=== PATIENT | female | born 1945 | race Caucasian/White ===

== ENCOUNTER 2023-08-03 10:34 | Inpatient (IN) | payer MEDICARE, BC ==
[~2023-08-03] VITALS: Ht 154.9 cm; Wt 50.9 kg
[~2023-08-03 10:34] MED LIST: CHOL4PW PO; NICO2GUM PO; PROP50TAB PO; PROP60TA14 PO; SELF1KIT MC
[2023-08-03] MEDS: METOPROLOL 5 MG/5 ML VIAL IV SCH (11:56)
[2023-08-03] MEDS ORDERED: METOPROLOL 5 MG/5 ML VIAL IV STA (12:26)
[2023-08-03 12:27] LABS: HEMATOCRIT 46.9 % (36.0-47.0); HEMOGLOBIN 15.2 g/dl (12.0-15.5); MEAN CORPUSCULAR HEMOGLOBIN 28.1 pg (27.0-33.0); MEAN CORPUSCULAR HGB CONC 32.4 g/dl (32.0-36.5); MEAN CORPUSCULAR VOLUME 86.7 fl (80.0-96.0); PLATELET COUNT, AUTOMATED 288 10^3/uL (150-450); RED BLOOD COUNT 5.41 10^6/uL (4.00-5.40); WHITE BLOOD COUNT 13.6 10^3/uL (4.0-10.0)
[2023-08-03 12:52] LABS: INR 1.04; PROTHROMBIN TIME 13.3 SECONDS (12.5-14.5)
[2023-08-03] MEDS: METOPROLOL TART 25 MG TABLET PO ONE (13:50)
[2023-08-03] MEDS: ASPIRIN 325 MG TAB PO ONE (17:29)
[2023-08-03] MEDS ORDERED: ISOVUE-370 76% 100ML VIAL As Ordered ONE (20:38)
[2023-08-03] MEDS ORDERED: MED REC CURRENTLY UNOBTAINABLE XX SCH (22:10)
[2023-08-03] MEDS ORDERED: ACETAMINOPHEN TAB 650MG DOSE (2X325MG) PO PRN (23:10)
[2023-08-03] MEDS ORDERED: MOM 30ML SUSPENSION UDC PO PRN (23:10)
[2023-08-04 01:01] VITALS: BP 137/88; TEMP 98.6; O2SAT 94
[2023-08-04] MEDS: APIXABAN 5 MG TAB (ELIQUIS) PO SCH (01:21)
[2023-08-04] MEDS: METOPROLOL TART 25 MG TABLET PO SCH (01:22)
[2023-08-04 04:44] VITALS: BP 143/88; TEMP 97.5; O2SAT 95
[2023-08-04 05:59] LABS: HEMATOCRIT 42.8 % (36.0-47.0); HEMOGLOBIN 14.1 g/dl (12.0-15.5); MEAN CORPUSCULAR HEMOGLOBIN 28.2 pg (27.0-33.0); MEAN CORPUSCULAR HGB CONC 32.9 g/dl (32.0-36.5); MEAN CORPUSCULAR VOLUME 85.6 fl (80.0-96.0); PLATELET COUNT, AUTOMATED 272 10^3/uL (150-450); WHITE BLOOD COUNT 10.8 10^3/uL (4.0-10.0)
[2023-08-04 08:00] VITALS: BP 143/72; TEMP 97.7; O2SAT 97
[2023-08-04] MEDS ORDERED: ATEN50TA2 PO (08:06)
[2023-08-04] MEDS ORDERED: ELIQ5TAB PO (08:06)
[2023-08-04] MEDS ORDERED: SELF1KIT MC (08:07)
[2023-08-04 08:09] LABS: BLOOD UREA NITROGEN 26 MG/DL (7-21); GLUCOSE, FASTING 150 MG/DL
[2023-08-04 08:10] LABS: CALCIUM LEVEL 9.4 MG/DL (8.8-10.2); CARBON DIOXIDE LEVEL 23 MEQ/L (22-30); CHLORIDE LEVEL 102 MEQ/L (98-107); CREATININE FOR GFR 0.4 MG/DL (0.7-1.5); GLOMERULAR FILTRATION RATE > 60.0 (>39); POTASSIUM SERUM 4.2 MEQ/L (3.6-5.0); SODIUM LEVEL 138 MEQ/L (134-153)
[2023-08-04 08:11] LABS: ALBUMIN 4.2 G/DL (3.9-5.0); ALKALINE PHOSPHATASE 142 U/L (35-104); ALT/SGPT 34 U/L (1-33); AST/SGOT 27 U/L (5-40); BILIRUBIN,DIRECT < 0.2 MG/DL (0.1-0.4); BILIRUBIN,TOTAL < 0.7 MG/DL (0.2-1.3); TOTAL PROTEIN 6.9 G/DL (6.3-8.2)
[2023-08-04 08:13] LABS: CPK CREATINE PHOSPHOKINASE 54 U/L (30-170)
[2023-08-04 08:15] LABS: ETHYL ALCOHOL (ETHANOL) < 0.00 % (0.00-0.01)
[2023-08-04] MEDS: atenoloL 50 MG TAB PO ONE (08:34)
[2023-08-04] MEDS: DIGOXIN INJ 0.5 MG/2 ML AMP IV STA (08:35)
[2023-08-04 09:46] LABS: AMPHETAMINES LEVEL URINE NEGATIVE (NEGATIVE); BARBITURATES URINE NEGATIVE (NEGATIVE); BENZODIAZEPINES URINE NEGATIVE (NEGATIVE); CANNABINOIDS URINE NEGATIVE (NEGATIVE); COCAINE METABOLITE URINE NEGATIVE (NEGATIVE); OPIATES URINE NEGATIVE (NEGATIVE); PHENCYCLIDINE URINE NEGATIVE (NEGATIVE)
[2023-08-04 10:11] LABS: CPK CREATINE PHOSPHOKINASE 50 U/L (30-170)
[2023-08-04] MEDS ORDERED: METOPROLOL TART 12.5 MG PER 1/2 TAB PO PRN (11:25)
[2023-08-04 20:51] VITALS: BP 130/65; TEMP 97.9; O2SAT 94
[2023-08-05 05:40] VITALS: BP 128/64; TEMP 97.7; O2SAT 96
[2023-08-05 05:47] VITALS: BP 177/84; TEMP 98.2; O2SAT 97
[2023-08-05] MEDS: atenoloL 50 MG TAB PO SCH (08:19)
[2023-08-06 04:46] VITALS: BP 142/70; TEMP 97.7; O2SAT 96
[2023-08-07 05:20] VITALS: BP 146/82; TEMP 98.1; O2SAT 95
[2023-08-07 14:58] LABS: T UPTAKE 33 % (24-39)
[2023-08-07 14:59] LABS: THYROID STIMULATING HORMONE < 0.005 uIU/ML (0.450-4.500); THYROXINE (T4) 11.7 MCG/DL (4.5-12.0)
[2023-08-07] MEDS ORDERED: atenoloL 50 MG TAB PO SCH (21:00)
[2023-08-07] MEDS: PROPRANOLOL 20 MG TAB PO SCH (21:01)
[2023-08-08 06:00] VITALS: BP 138/84; TEMP 98.1; O2SAT 97
[2023-08-08 06:12] LABS: THYROID PEROXIDASE ANTIBODY < 28.0 U/ML (<60.0); THYROID STIMULATING HORMONE 0.014 uIU/ML (0.55-4.78); TOTAL T3 196.1 NG/DL (60.0-181.0)
[2023-08-08 06:13] LABS: FREE T4 1.63 NG/DL (0.89-1.76)
[2023-08-08 08:13] LABS: BLOOD UREA NITROGEN 18 MG/DL (7-21); GLUCOSE, FASTING 116 MG/DL
[2023-08-08 08:15] LABS: CALCIUM LEVEL 9.1 MG/DL (8.8-10.2); CARBON DIOXIDE LEVEL 24 MEQ/L (22-30); CHLORIDE LEVEL 107 MEQ/L (98-107); CREATININE FOR GFR 0.4 MG/DL (0.7-1.5); GLOMERULAR FILTRATION RATE > 60.0 (>39); MAGNESIUM LEVEL 1.7 MG/DL (1.7-2.2); POTASSIUM SERUM 3.9 MEQ/L (3.6-5.0); SODIUM LEVEL 142 MEQ/L (134-153)
[2023-08-08 14:00] VITALS: BP 132/86; TEMP 98.2; O2SAT 97
[2023-08-08 20:00] VITALS: BP 133/75; TEMP 98.1; O2SAT 97
[2023-08-09 06:00] VITALS: BP 146/84; TEMP 97.9; O2SAT 94
[2023-08-09 13:08] LABS: THRYOGLOBULIN ANTIBODIES (ATA) < 1.0 IU/mL (0.0-0.9); THYROGLOBULIN QUANTITATIVE 85.5 ng/mL (1.5-38.5)
[2023-08-09 14:00] VITALS: BP 138/82; TEMP 98.1; O2SAT 96
[2023-08-09 17:09] LABS: THYROID BINDING GLOBULIN 19 ug/mL (13-39); TSH RECEPTOR ASSAY <1.10 IU/L (0.00-1.75)
[2023-08-09 20:00] VITALS: BP 113/68; TEMP 98.1; O2SAT 92
[2023-08-09 21:00] VITALS: BP 137/78; TEMP 98.2; O2SAT 98
[2023-08-10 05:14] VITALS: BP 121/71; TEMP 98; O2SAT 95
[2023-08-10 14:00] VITALS: BP 122/80; TEMP 98.8; O2SAT 97
[2023-08-10 20:10] VITALS: BP 124/76; TEMP 98.1; O2SAT 96
[2023-08-11 05:50] VITALS: BP 122/76; TEMP 98.1; O2SAT 95
[2023-08-11 14:00] VITALS: BP 134/70; TEMP 98.8; O2SAT 99
[2023-08-11 19:47] VITALS: BP 132/64; TEMP 98.1; O2SAT 95
[2023-08-12 05:54] VITALS: BP 130/68; TEMP 97.9; O2SAT 97
[2023-08-12 14:29] VITALS: BP 110/70; TEMP 97.7; O2SAT 97
[2023-08-12 19:17] VITALS: BP 110/72; TEMP 98.2; O2SAT 96
[2023-08-13 05:20] VITALS: TEMP 98.1; O2SAT 97
[2023-08-13 05:34] VITALS: BP 124/76
[2023-08-13 06:44] LABS: FREE T4 1.59 NG/DL (0.89-1.76); TOTAL T3 154.8 NG/DL (60.0-181.0)
[2023-08-13 11:26] LABS: HEMATOCRIT 48.1 % (36.0-47.0); HEMOGLOBIN 15.4 g/dl (12.0-15.5); MEAN CORPUSCULAR HEMOGLOBIN 28.4 pg (27.0-33.0); MEAN CORPUSCULAR VOLUME 88.7 fl (80.0-96.0); PLATELET COUNT, AUTOMATED 334 10^3/uL (150-450); RED BLOOD COUNT 5.42 10^6/uL (4.00-5.40); WHITE BLOOD COUNT 11.7 10^3/uL (4.0-10.0)
[2023-08-13 11:31] LABS: BLOOD UREA NITROGEN 24 MG/DL (9-23); CALCIUM LEVEL 9.1 MG/DL (8.3-10.6); CARBON DIOXIDE LEVEL 28 MMOL/L (20-31); CHLORIDE LEVEL 103 MMOL/L (98-107); CREATININE FOR GFR 0.43 MG/DL (0.55-1.30); GLOMERULAR FILTRATION RATE > 60.0 (>39); GLUCOSE, FASTING 131 MG/DL (74-106); POTASSIUM SERUM 4.4 MMOL/L (3.5-5.1); SODIUM LEVEL 139 MMOL/L (136-145)
[2023-08-13 13:49] VITALS: BP 122/82; TEMP 98.1; O2SAT 97
[2023-08-14 05:39] VITALS: BP 136/86; TEMP 98.1; O2SAT 97
[2023-08-14 14:00] VITALS: BP 120/82; TEMP 98.6; O2SAT 97
[2023-08-14 20:10] VITALS: BP 132/86; TEMP 97.9; O2SAT 96
[2023-08-15 05:10] VITALS: BP 130/82; TEMP 97.9; O2SAT 96
[2023-08-15 14:07] VITALS: BP 138/70; TEMP 98.2; O2SAT 98
[2023-08-15 21:48] VITALS: BP 120/62; TEMP 98.2; O2SAT 97
[2023-08-16 06:37] VITALS: TEMP 98.1; O2SAT 97
[2023-08-16 14:00] VITALS: BP 122/79; TEMP 97.7; O2SAT 96
[2023-08-16 22:00] VITALS: BP 137/84; TEMP 97.4; O2SAT 98
[2023-08-17 05:19] VITALS: BP 139/83; TEMP 97.3; O2SAT 98
[2023-08-17 14:00] VITALS: BP 122/73; TEMP 97.9; O2SAT 95
[2023-08-17 22:00] VITALS: BP 122/73; TEMP 97.5; O2SAT 97
[2023-08-18 05:36] VITALS: BP 132/76; TEMP 98.1; O2SAT 96
[2023-08-18 14:43] VITALS: BP 136/73; TEMP 97.9; O2SAT 97
[2023-08-19 06:00] VITALS: BP 120/57; TEMP 97.6; O2SAT 95
[2023-08-19 06:16] VITALS: BP 125/71; TEMP 97.6; O2SAT 96
[2023-08-19 14:00] VITALS: BP 126/61; TEMP 98.6; O2SAT 96
[2023-08-20 05:49] VITALS: BP 124/62; TEMP 97.1; O2SAT 99
[2023-08-20 06:53] LABS: TOTAL T3 128.2 NG/DL (60.0-181.0)
[2023-08-20 06:54] LABS: FREE T4 1.25 NG/DL (0.89-1.76)
[2023-08-20 10:50] LABS: BLOOD UREA NITROGEN 24 MG/DL (9-23); CARBON DIOXIDE LEVEL 29 MMOL/L (20-31); CHLORIDE LEVEL 104 MMOL/L (98-107); CREATININE FOR GFR 0.43 MG/DL (0.55-1.30); GLOMERULAR FILTRATION RATE > 60.0 (>39); GLUCOSE, FASTING 102 MG/DL (74-106); POTASSIUM SERUM 4.4 MMOL/L (3.5-5.1); SODIUM LEVEL 140 MMOL/L (136-145)
[2023-08-20 12:35] LABS: HEMATOCRIT 48.4 % (36.0-47.0); HEMOGLOBIN 15.7 g/dl (12.0-15.5); MEAN CORPUSCULAR HEMOGLOBIN 28.8 pg (27.0-33.0); MEAN CORPUSCULAR HGB CONC 32.4 g/dl (32.0-36.5); MEAN CORPUSCULAR VOLUME 88.6 fl (80.0-96.0); PLATELET COUNT, AUTOMATED 313 10^3/uL (150-450); RED BLOOD COUNT 5.46 10^6/uL (4.00-5.40); WHITE BLOOD COUNT 13.1 10^3/uL (4.0-10.0)
[2023-08-21 05:59] VITALS: BP 120/70; TEMP 98.1; O2SAT 97
[2023-08-21 13:45] VITALS: BP 160/90
[2023-08-22 05:50] VITALS: BP 162/98; TEMP 97.9; O2SAT 97
[2023-08-22 14:00] VITALS: BP 142/78
[2023-08-23 06:00] VITALS: TEMP 98.1; O2SAT 95
[2023-08-23 08:00] VITALS: BP 146/70
[2023-08-23 21:06] VITALS: BP 132/64; TEMP 98.1; O2SAT 98
[2023-08-24 05:32] VITALS: BP 140/74; TEMP 98.2; O2SAT 95
[2023-08-25 06:00] VITALS: BP 140/82; TEMP 98.1; O2SAT 97
[2023-08-26 05:30] VITALS: BP 120/60; TEMP 97.3; O2SAT 96
[2023-08-27 06:00] VITALS: TEMP 97.9; O2SAT 96
[2023-08-27 07:10] LABS: FREE T4 1.04 NG/DL (0.89-1.76); THYROID STIMULATING HORMONE 0.013 uIU/ML (0.55-4.78)
[2023-08-27 07:15] LABS: TOTAL T3 122.6 NG/DL (60.0-181.0)
[2023-08-27 10:22] LABS: BLOOD UREA NITROGEN 21 MG/DL (9-23); CALCIUM LEVEL 9.2 MG/DL (8.3-10.6); CARBON DIOXIDE LEVEL 28 MMOL/L (20-31); CHLORIDE LEVEL 103 MMOL/L (98-107); CREATININE FOR GFR 0.43 MG/DL (0.55-1.30); GLOMERULAR FILTRATION RATE > 60.0 (>39); GLUCOSE, FASTING 162 MG/DL (74-106); POTASSIUM SERUM 4.7 MMOL/L (3.5-5.1); SODIUM LEVEL 137 MMOL/L (136-145)
[2023-08-27 10:23] LABS: HEMATOCRIT 51.5 % (36.0-47.0); HEMOGLOBIN 16.3 g/dl (12.0-15.5); MEAN CORPUSCULAR HEMOGLOBIN 27.9 pg (27.0-33.0); MEAN CORPUSCULAR HGB CONC 31.7 g/dl (32.0-36.5); MEAN CORPUSCULAR VOLUME 88.2 fl (80.0-96.0); PLATELET COUNT, AUTOMATED 294 10^3/uL (150-450); RED BLOOD COUNT 5.84 10^6/uL (4.00-5.40); WHITE BLOOD COUNT 9.9 10^3/uL (4.0-10.0)
[2023-08-29 06:00] VITALS: TEMP 98.2; O2SAT 98
[2023-08-30 06:00] VITALS: BP 138/94; TEMP 98.1; O2SAT 96
[2023-08-31 06:58] VITALS: TEMP 98.1; O2SAT 96
[2023-09-01 05:14] VITALS: BP 134/78; TEMP 98.1; O2SAT 99
[2023-09-02 05:00] VITALS: BP 142/82; TEMP 98.4; O2SAT 97
[2023-09-03 06:13] VITALS: BP 128/68; TEMP 98; O2SAT 97
[2023-09-03 06:25] LABS: BASO # 0.1 10^3/uL (0.0-0.2); BASO % 0.4 % (0.0-1.0); EOS # 0.4 10^3/uL (0.0-0.5); EOS % 2.9 % (0.0-3.0); HEMATOCRIT 50.3 % (36.0-47.0); HEMOGLOBIN 16.1 g/dl (12.0-15.5); LYMPH % 15.1 % (24.0-44.0); MEAN CORPUSCULAR HEMOGLOBIN 28.3 pg (27.0-33.0); MEAN CORPUSCULAR VOLUME 88.4 fl (80.0-96.0); MONO # 1.2 10^3/uL (0.0-0.8); MONO % 9.1 % (2.0-8.0); NEUTROPHILS # 9.3 10^3/uL (1.5-8.5); NEUTROPHILS % 71.7 % (36.0-66.0); PLATELET COUNT, AUTOMATED 324 10^3/uL (150-450); RED BLOOD COUNT 5.69 10^6/uL (4.00-5.40)
[2023-09-03 06:45] LABS: BLOOD UREA NITROGEN 21 MG/DL (9-23); CALCIUM LEVEL 9.2 MG/DL (8.3-10.6); CARBON DIOXIDE LEVEL 30 MMOL/L (20-31); CHLORIDE LEVEL 103 MMOL/L (98-107); CREATININE FOR GFR 0.44 MG/DL (0.55-1.30); GLOMERULAR FILTRATION RATE > 60.0 (>39); GLUCOSE, FASTING 128 MG/DL (74-106); POTASSIUM SERUM 4.7 MMOL/L (3.5-5.1); SODIUM LEVEL 137 MMOL/L (136-145)
[2023-09-03 06:47] LABS: FREE T4 1.09 NG/DL (0.89-1.76); THYROID STIMULATING HORMONE 0.008 uIU/ML (0.55-4.78); TOTAL T3 156.3 NG/DL (60.0-181.0)
[2023-09-03 06:48] LABS: FREE T3 3.7 PG/ML (2.3-4.2)
[2023-09-03 14:12] VITALS: BP 122/72
[2023-09-04 06:08] VITALS: BP 124/78; TEMP 98.1; O2SAT 91
[2023-09-05 21:08] VITALS: BP 130/86
[2023-09-06 06:01] VITALS: BP 128/70; TEMP 97.9; O2SAT 99
[2023-09-07 05:47] VITALS: BP 138/68; TEMP 97.7; O2SAT 94
[2023-09-07 14:22] VITALS: BP 122/70
[2023-09-08 05:40] VITALS: BP 120/50; O2SAT 98
[2023-09-09 06:19] VITALS: BP 102/64; TEMP 98.1; O2SAT 98
[2023-09-10 04:26] VITALS: BP 152/88; TEMP 98.1; O2SAT 98
[2023-09-10 06:27] LABS: BASO # 0.1 10^3/uL (0.0-0.2); BASO % 0.7 % (0.0-1.0); EOS # 0.3 10^3/uL (0.0-0.5); EOS % 2.8 % (0.0-3.0); HEMATOCRIT 47.9 % (36.0-47.0); HEMOGLOBIN 15.1 g/dl (12.0-15.5); LYMPH # 2.1 10^3/uL (1.5-5.0); LYMPH % 17.7 % (24.0-44.0); MEAN CORPUSCULAR HEMOGLOBIN 28.2 pg (27.0-33.0); MEAN CORPUSCULAR HGB CONC 31.5 g/dl (32.0-36.5); MEAN CORPUSCULAR VOLUME 89.4 fl (80.0-96.0); MONO # 1.1 10^3/uL (0.0-0.8); MONO % 9.5 % (2.0-8.0); NEUTROPHILS # 8.1 10^3/uL (1.5-8.5); NEUTROPHILS % 68.8 % (36.0-66.0); PLATELET COUNT, AUTOMATED 321 10^3/uL (150-450); RED BLOOD COUNT 5.36 10^6/uL (4.00-5.40); WHITE BLOOD COUNT 11.8 10^3/uL (4.0-10.0)
[2023-09-11 06:00] VITALS: BP 126/66; TEMP 97.6; O2SAT 96
[2023-09-12 06:00] VITALS: BP 138/78; TEMP 97.9; O2SAT 97
[2023-09-13 05:31] VITALS: BP 130/74; TEMP 97.9; O2SAT 98
[2023-09-14 05:48] VITALS: BP 128/72; TEMP 98.1; O2SAT 97
[2023-09-15 05:11] VITALS: BP 138/88; TEMP 98.1; O2SAT 97
[2023-09-15 06:00] VITALS: BP 138/88; TEMP 98.1; O2SAT 97
[2023-09-16 06:00] VITALS: BP 138/84; TEMP 98.4; O2SAT 98
[2023-09-17 06:05] LABS: BASO % 0.5 % (0.0-1.0); EOS % 0.2 % (0.0-3.0); HEMATOCRIT 46.2 % (36.0-47.0); HEMOGLOBIN 15.1 g/dl (12.0-15.5); LYMPH # 0.9 10^3/uL (1.5-5.0); LYMPH % 11.4 % (24.0-44.0); MEAN CORPUSCULAR HEMOGLOBIN 28.7 pg (27.0-33.0); MEAN CORPUSCULAR HGB CONC 32.7 g/dl (32.0-36.5); MEAN CORPUSCULAR VOLUME 87.7 fl (80.0-96.0); MONO % 21.8 % (2.0-8.0); NEUTROPHILS # 5.3 10^3/uL (1.5-8.5); NEUTROPHILS % 65.2 % (36.0-66.0); PLATELET COUNT, AUTOMATED 304 10^3/uL (150-450); RED BLOOD COUNT 5.27 10^6/uL (4.00-5.40); WHITE BLOOD COUNT 8.2 10^3/uL (4.0-10.0)
[2023-09-17 06:11] VITALS: BP 122/74; TEMP 99; O2SAT 96
[2023-09-17 06:50] LABS: MONO # 1.8 10^3/uL (0.0-0.8)
[2023-09-17 20:30] VITALS: BP 92/60; TEMP 99.3; O2SAT 97
[2023-09-18 06:00] VITALS: BP 118/78; TEMP 98.8; O2SAT 94
[2023-09-18 06:13] LABS: THYROID STIMULATING HORMONE 0.013 uIU/ML (0.55-4.78)
[2023-09-18 06:14] LABS: FREE T4 0.88 NG/DL (0.89-1.76)
[2023-09-18 06:17] LABS: TOTAL T3 92.2 NG/DL (60.0-181.0)
[2023-09-18] MEDS: PROPRANOLOL 20 MG TAB PO SCH (21:28)
[2023-09-18 21:29] VITALS: BP 108/72
[2023-09-19 05:41] VITALS: BP 120/62; TEMP 97.7; O2SAT 96
[2023-09-19] MEDS: atenoloL 25 MG TAB PO SCH (15:00)
[2023-09-20 05:42] VITALS: BP 124/72; TEMP 98.1; O2SAT 97
[2023-09-21 06:00] VITALS: BP 120/64; TEMP 97.9; O2SAT 97
[2023-09-22 06:34] VITALS: BP 120/64; TEMP 97.9; O2SAT 96
[2023-09-23 06:28] VITALS: BP 122/64; TEMP 98.1; O2SAT 95
[2023-09-24 06:00] VITALS: BP 124/70; TEMP 98.1; O2SAT 99
[2023-09-25 06:00] VITALS: BP 124/62; TEMP 98.1; O2SAT 96
[2023-09-25 13:22] LABS: BASO % 0.2 % (0.0-1.0); EOS # 0.2 10^3/uL (0.0-0.5); EOS % 1.1 % (0.0-3.0); HEMATOCRIT 48.5 % (36.0-47.0); HEMOGLOBIN 15.9 g/dl (12.0-15.5); LYMPH # 2.4 10^3/uL (1.5-5.0); LYMPH % 16.4 % (24.0-44.0); MEAN CORPUSCULAR HEMOGLOBIN 28.9 pg (27.0-33.0); MEAN CORPUSCULAR HGB CONC 32.8 g/dl (32.0-36.5); MEAN CORPUSCULAR VOLUME 88.2 fl (80.0-96.0); MONO # 1.1 10^3/uL (0.0-0.8); MONO % 7.7 % (2.0-8.0); NEUTROPHILS # 10.7 10^3/uL (1.5-8.5); PLATELET COUNT, AUTOMATED 324 10^3/uL (150-450); WHITE BLOOD COUNT 14.4 10^3/uL (4.0-10.0)
[2023-09-25 13:48] LABS: THYROID STIMULATING HORMONE 0.014 uIU/ML (0.55-4.78); THYROXINE (T4) 8.4 UG/DL (4.5-10.9)
[2023-09-25 13:50] LABS: FREE T3 3.5 PG/ML (2.3-4.2)
[2023-09-26 06:00] VITALS: BP 118/68; TEMP 97.9; O2SAT 97
[2023-09-26 13:17] LABS: BASO % 0.2 % (0.0-1.0); EOS # 0.2 10^3/uL (0.0-0.5); EOS % 1.2 % (0.0-3.0); HEMATOCRIT 50.7 % (36.0-47.0); HEMOGLOBIN 16.1 g/dl (12.0-15.5); LYMPH # 2.2 10^3/uL (1.5-5.0); LYMPH % 17.7 % (24.0-44.0); MEAN CORPUSCULAR HEMOGLOBIN 28.2 pg (27.0-33.0); MEAN CORPUSCULAR HGB CONC 31.8 g/dl (32.0-36.5); MEAN CORPUSCULAR VOLUME 88.8 fl (80.0-96.0); MONO # 1.1 10^3/uL (0.0-0.8); MONO % 8.4 % (2.0-8.0); NEUTROPHILS # 9.1 10^3/uL (1.5-8.5); NEUTROPHILS % 71.7 % (36.0-66.0); PLATELET COUNT, AUTOMATED 361 10^3/uL (150-450); RED BLOOD COUNT 5.71 10^6/uL (4.00-5.40); WHITE BLOOD COUNT 12.6 10^3/uL (4.0-10.0)
[2023-09-26 13:50] LABS: FREE T4 0.86 NG/DL (0.89-1.76)
[2023-09-26 13:52] LABS: TOTAL T3 136.6 NG/DL (60.0-181.0)
[2023-09-26 13:55] LABS: PROCALCITONIN <0.04 ng/ml
[2023-09-27 06:00] VITALS: BP 126/68; TEMP 97.9; O2SAT 96
[2023-09-28 06:56] VITALS: BP 116/42; TEMP 98.4; O2SAT 98
[2023-09-29 05:38] VITALS: BP 122/71; TEMP 98.1; O2SAT 97
[2023-09-30 05:37] VITALS: BP 114/65; TEMP 98.2; O2SAT 99
[2023-10-01 05:23] VITALS: BP 124/64; TEMP 98.1; O2SAT 95
[2023-10-02 06:00] VITALS: BP 132/68; TEMP 97.9; O2SAT 98
[2023-10-03 06:56] VITALS: BP 122/72; TEMP 98.2; O2SAT 98
[2023-10-04 06:54] VITALS: BP 124/68; TEMP 98.1; O2SAT 97
[2023-10-04 06:55] VITALS: BP 124/68; TEMP 98.1; O2SAT 97
[2023-10-05 06:00] VITALS: BP 122/64; TEMP 97.7; O2SAT 100
[2023-10-06 06:00] VITALS: BP 120/70; TEMP 98.1; O2SAT 96
[2023-10-07 05:01] VITALS: BP 118/64; TEMP 98; O2SAT 98
[2023-10-07 12:40] LABS: FREE T4 0.63 NG/DL (0.89-1.76)
[2023-10-07 12:41] LABS: THYROID STIMULATING HORMONE 0.012 uIU/ML (0.55-4.78)
[2023-10-07 12:44] LABS: FREE T3 2.8 PG/ML (2.3-4.2)
[2023-10-08 06:16] VITALS: BP 128/72; TEMP 97.9; O2SAT 98
[2023-10-09 06:00] VITALS: BP 134/80; TEMP 98.1; O2SAT 96
[2023-10-10 06:00] VITALS: BP 130/82; TEMP 97.9; O2SAT 97
[2023-10-11 05:28] VITALS: BP 118/52; TEMP 98.2; O2SAT 97
[2023-10-12 06:04] VITALS: BP 120/54; TEMP 98.2; O2SAT 98
[2023-10-13 06:00] VITALS: BP 124/72; TEMP 97.7; O2SAT 99
[2023-10-14 06:00] VITALS: BP 134/68; TEMP 98.2; O2SAT 99
[2023-10-15 05:42] VITALS: BP 132/70; TEMP 98.1; O2SAT 98
[2023-10-16 05:00] VITALS: BP 132/64; TEMP 98.1; O2SAT 95
[2023-10-17 04:53] VITALS: BP 130/62; TEMP 97.7; O2SAT 97
[2023-10-18 05:37] VITALS: BP 130/58; TEMP 97.7; O2SAT 96
[2023-10-20 06:00] VITALS: BP 118/68; TEMP 98.1; O2SAT 98
[2023-10-21 05:46] VITALS: BP 116/78; TEMP 97.9; O2SAT 98
[2023-10-22 06:00] VITALS: BP 126/64; TEMP 98.1; O2SAT 98
[2023-10-22] MEDS: atenoloL 25 MG TAB PO SCH (19:57)
[2023-10-23 05:30] VITALS: BP 130/68; TEMP 97.9; O2SAT 96
[2023-10-24 06:00] VITALS: BP 118/66; TEMP 97.7; O2SAT 98
[2023-10-26 05:51] VITALS: BP 128/56; TEMP 98.1; O2SAT 97
[2023-10-27 06:31] VITALS: BP 122/66; TEMP 97.9; O2SAT 100
[2023-10-28 07:00] VITALS: BP 128/68; TEMP 97.7; O2SAT 97
[2023-10-29 06:00] VITALS: BP 130/70; TEMP 97.7; O2SAT 96
[2023-10-30 06:00] VITALS: BP 128/64; TEMP 97.9; O2SAT 97
[2023-11-01 06:49] VITALS: BP 148/82; TEMP 98.1; O2SAT 98
[2023-11-02 05:59] VITALS: BP 140/88; TEMP 98.2; O2SAT 97
[2023-11-03 05:21] VITALS: BP 160/82; TEMP 98.6; O2SAT 95
[2023-11-03 09:41] VITALS: BP 146/84
[2023-11-04 05:51] VITALS: BP 136/74; TEMP 97.9; O2SAT 97
[2023-11-05 06:39] VITALS: BP 132/64; TEMP 98.1; O2SAT 99
[2023-11-05 20:10] VITALS: BP 138/62
[2023-11-06 06:00] VITALS: BP 122/66; TEMP 98.1; O2SAT 98
[2023-11-07 06:10] VITALS: BP 120/64; TEMP 97.9; O2SAT 97
[2023-11-07 12:47] LABS: FREE T3 2.9 PG/ML (2.3-4.2); FREE T4 0.82 NG/DL (0.89-1.76); THYROID STIMULATING HORMONE 0.043 uIU/ML (0.55-4.78)
[2023-11-08 06:00] VITALS: BP 128/70; TEMP 98.1; O2SAT 97
[2023-11-09 06:00] VITALS: BP 132/68; TEMP 98.1; O2SAT 97
[2023-11-10 06:00] VITALS: BP 128/64; TEMP 97.7; O2SAT 97
[2023-11-11 06:00] VITALS: BP 128/72; TEMP 98.4; O2SAT 97
[2023-11-12 06:00] VITALS: BP 120/64; TEMP 98.4; O2SAT 97
[2023-11-13 07:00] VITALS: BP 118/68; TEMP 97.9; O2SAT 98
[2023-11-13 21:11] VITALS: BP 110/70
[2023-11-14 06:48] VITALS: BP 118/64; TEMP 97.6; O2SAT 99
[2023-11-14 21:00] VITALS: BP 128/65; TEMP 97.9; O2SAT 97
[2023-11-15 06:38] VITALS: BP 118/64; TEMP 97.9; O2SAT 97
[2023-11-16 06:00] VITALS: BP 128/60; TEMP 98.4; O2SAT 99
[2023-11-17 06:00] VITALS: BP 124/70; TEMP 98.2; O2SAT 97
[2023-11-18 06:02] VITALS: BP 122/72; TEMP 97.7; O2SAT 98
[2023-11-19 06:00] VITALS: BP 160/90; TEMP 97.9; O2SAT 97
[2023-11-20 06:15] VITALS: BP 122/68; TEMP 98.1; O2SAT 98
[2023-11-21 06:00] VITALS: BP 130/64; TEMP 97.7; O2SAT 97
[2023-11-22 06:36] VITALS: BP 122/54; TEMP 98.1; O2SAT 98
[2023-11-23 05:57] VITALS: BP 116/56; TEMP 97.7; O2SAT 96
[2023-11-24 06:54] VITALS: BP 134/74; TEMP 98.2
[2023-11-25 06:45] VITALS: BP 128/68; TEMP 98.2; O2SAT 100
[2023-11-25 19:55] VITALS: BP 136/72
[2023-11-26 05:24] VITALS: BP 130/70; TEMP 97.7; O2SAT 98
[2023-11-27 05:52] VITALS: BP 128/78; TEMP 97.7; O2SAT 100
[2023-11-28 06:00] VITALS: BP 128/64; TEMP 97.7; O2SAT 99
[2023-11-29 06:10] VITALS: BP 132/78; TEMP 98.1; O2SAT 100
[2023-11-30 06:37] VITALS: BP 128/84; TEMP 98.1; O2SAT 98
[2023-11-30 08:21] VITALS: BP 126/68
[2023-11-30] MEDS ORDERED: ATEN25TA PO (09:26)
[2023-11-30] MEDS ORDERED: ELIQ5TAB PO (09:26)
[2023-11-30] MEDS ORDERED: METH25TAB PO (09:26)
== END 2023-11-30 12:42 | DRG 643 ==
LOC: M ED 10:34 → M ED INP 23:09 → ENRESERV 08-04 00:18 → M MSPAV 08-04 00:55
PROVIDERS: ADMIT Internal Medicine; ATTEND Internal Medicine
PROC: B246ZZZ Ultrasonography of Right and Left Heart (ICD-10-PCS; principal; 2023-08-05)
DX: E05.20 Thyrotoxicosis with toxic multinodular goiter without thyrotoxic crisis or storm (principal); U07.1 COVID-19; G93.41 Metabolic encephalopathy; Z59.00 Homelessness unspecified; F03.92 Unspecified dementia, unspecified severity, with psychotic disturbance; F41.1 Generalized anxiety disorder; I48.91 Unspecified atrial fibrillation; R91.8 Other nonspecific abnormal finding of lung field; F29 Unspecified psychosis not due to a substance or known physiological condition; I27.20 Pulmonary hypertension, unspecified; F41.0 Panic disorder [episodic paroxysmal anxiety]; I67.2 Cerebral atherosclerosis; Q27.8 Other specified congenital malformations of peripheral vascular system; F17.200 Nicotine dependence, unspecified, uncomplicated; Z88.1 Allergy status to other antibiotic agents; Z88.2 Allergy status to sulfonamides